=== PATIENT | male | born 1980 | race African-American/Black ===

== ENCOUNTER 2022-01-26 16:41 | Emergency (ER) | payer SELFPAY ==
[2022-01-26] VITALS (16 sets, daily range): BP systolic 144–169; BP diastolic 79–94
[~2022-01-26] VITALS: Ht 175.3 cm; Wt 135.0 kg
[2022-01-26 17:21] LABS: IMMATURE GRANULOCYTES 0.3 % (0.0-5.0); MEAN CELL VOLUME 83.8 fL CALC (80.0-100.0); MEAN CORPUSCULAR HGB 26.5 pG CALC (26.0-32.0); MEAN CORPUSCULAR HGB CONC 31.7 g/dL CAL (32.0-36.0); NEUT# 3.93 thou/uL (1.82-7.42); RED BLOOD COUNT 4.56 mill/uL (4.70-6.10); RED CELL DISTRI WIDTH 14.3 % (11.5-15.5)
[2022-01-26 17:23] LABS: HEMATOCRIT 38.2 % (39.0-50.0); HEMOGLOBIN 12.1 g/dl (14.0-18.0)
[2022-01-26 17:40] LABS: ALKALINE PHOSPHATASE 74 u/l (38-126); BUN 15 mg/dL (9-20); BUN/CREATININE RATIO 18 (12-20 (CALC)); CHLORIDE 100 mmol/l (95-108); CREATININE 0.9 mg/dL (0.7-1.3); GFR > 60 ML/MIN (>=60 (CALC)); GFR FOR AFR.AMER. > 60 ML/MIN (>=60 (CALC)); POTASSIUM 4.1 mmol/l (3.5-5.1); SGOT/AST 34 u/l (17-59); SODIUM 136 mmol/l (137-146)
[2022-01-26 17:41] LABS: ALBUMIN 4.3 g/dL (3.2-5.0); ANION GAP 15 (6-22 (CALC)); BILIRUBIN, TOTAL 0.2 mg/dL (0.0-1.4); CARBON DIOXIDE 25 mmol/l (22-30)
[2022-01-26] MEDS ORDERED: ROSUVASTATIN CA20 MG (19:28)
[2022-01-26] MEDS ORDERED: METOPROL TAR25 MG PO (19:28)
[2022-01-26] MEDS ORDERED: HYDROCHLOROT25 MG PO (19:28)
[2022-01-26] MEDS ORDERED: METFORMIN HCL1000 MG PO (19:28)
[2022-01-26] MEDS ORDERED: LOSARTAN POTASS25 MG PO (19:29)
== END 2022-01-26 21:48 | disposition short-term general hospital (02) | DRG 282 ==
LOC: ED 16:41
PROVIDERS: Family Medicine
DX: I21.4 Non-ST elevation (NSTEMI) myocardial infarction (principal); I10 Essential (primary) hypertension; E11.9 Type 2 diabetes mellitus without complications; E78.5 Hyperlipidemia, unspecified; Z79.84 Long term (current) use of oral hypoglycemic drugs
CPT/HCPCS: J1644